=== PATIENT | female | born 1965 | race Caucasian/White ===

== ENCOUNTER 2019-03-14 06:49 | Day surgery (SDC) | payer OTHER ==
[2019-03-14] MEDS: SOD CHLORIDE 0.9% 1,000 ML IV (07:31)
[2019-03-14] MEDS ORDERED: BUPIVACAINE 0.25% (MPF) 30 ML INJ (09:24)
[2019-03-14] MEDS ORDERED: LIDOCAINE 2% (MDV) 20 ML INJ (09:24)
[2019-03-14] MEDS ORDERED: BUPIVACAINE 0.5% (SDV) 30 ML INJ (09:24)
[2019-03-14] MEDS ORDERED: FENTAnyl 50 MCG/ML VIAL (09:29)
[2019-03-14] MEDS ORDERED: MIDAZOLAM 1 MG/ML 2 ML INJ (09:29)
[2019-03-14] MEDS ORDERED: PROPOFOL 100 ML (09:33)
[2019-03-14] MEDS: CEFAZOLIN 2 GM/50 ML (PMX) 50 ML IVPB (09:40)
[2019-03-14] MEDS ORDERED: CEFAZOLIN 1 GM INJ (09:43)
[2019-03-14] MEDS: BUPIVACAINE 0.25% (MPF) 30 ML INJ INJ (09:49)
[2019-03-14] MEDS ORDERED: ALBUTEROL 0.083% (NEB) 2.5 MG/3 ML AMP HHN (10:30)
[2019-03-14] MEDS ORDERED: EPHEDrine 25 MG/5 ML SYG IV (10:30)
[2019-03-14] MEDS ORDERED: hydrALAzine 20 MG INJ IV (10:30)
[2019-03-14] MEDS ORDERED: ONDANSETRON 4 MG INJ IV (10:30)
[2019-03-14] MEDS ORDERED: DIPHENHYDRAMINE 50 MG INJ IV (10:30)
[2019-03-14] MEDS ORDERED: FENTAnyl 50 MCG/ML VIAL IV ×3 (10:30)
[2019-03-14] MEDS ORDERED: KETOROLAC 30 MG INJ IV (10:30)
[2019-03-14] MEDS ORDERED: LABETALOL HCL 20MG INJ IV (10:30)
[2019-03-14] MEDS ORDERED: HYDROCODONE/APAP (5/325) TAB PO (10:30)
[2019-03-14] MEDS ORDERED: MEPERIDINE 25 MG INJ IV (10:30)
[2019-03-14] MEDS ORDERED: OXYCODONE/ACETAMINOPHEN (5/325) TAB PO ×2 (10:30)
== END 2019-03-14 12:01 | disposition home or self-care (01) ==
LOC: SDS 06:49
DX: L72.0 Epidermal cyst (principal); I10 Essential (primary) hypertension; F41.9 Anxiety disorder, unspecified; F31.9 Bipolar disorder, unspecified
CPT/HCPCS: 14000